=== PATIENT | male | born 2000 | race Caucasian/White ===

== ENCOUNTER 2021-07-11 19:41 | Emergency (ER) | payer BC ==
[~2021-07-11] VITALS: Ht 182.9 cm; Wt 74.8 kg
== END 2021-07-11 23:00 | disposition home or self-care (01) ==
LOC: ER1 19:41
DX: U07.1 COVID-19 (principal); Z23 Encounter for immunization; E11.9 Type 2 diabetes mellitus without complications; Z90.49 Acquired absence of other specified parts of digestive tract
CPT/HCPCS: 99282; M0247